=== PATIENT | male | born 1980 | race Caucasian/White ===

== ENCOUNTER → 2022-10-24 09:35 | Outpatient (CLI) | payer OTHER, SELFPAY ==
[2022-10-24 16:52] LABS: Basophils # 0.1 K/mm3 (0-0.2); Basophils % 1.3 % (0.1-2.0); Eosinophils # 0.1 K/mm3 (0.0-0.4); Eosinophils % 1.3 % (0.1-12.0); Hematocrit 47.4 % (42.0-52.0); Hemoglobin 15.6 g/dL (14.1-18.0); Lymphocytes # 1.9 K/mm3 (0.7-4.5); Lymphocytes % 26.5 % (10-50); Mean Corpuscular HGB Conc 32.9 g/dL (31.8-35.4); Mean Corpuscular Hemoglobin 29.4 pg (27.0-31.2); Mean Corpuscular Volume 89.3 fl (80-94); Mean Platelet Volume 9.4 fl (7.4-10.4); Monocytes # 0.4 K/mm3 (0.1-1.0); Neutrophils # 4.5 K/mm3 (1.8-7.8); Neutrophils % 64.9 % (37.0-80.0); Platelet Count 277 K/mm3 (142-424)
[2022-10-24 16:55] LABS: Alanine Aminotransferase 41 U/L (12-78); Albumin Level 4.5 g/dl (3.5-5.0); Albumin/Globulin Ratio 1.5 (1.1-1.8); Alkaline Phosphatase 73 U/L (38-126); Anion Gap 9.5 mEq/L (5-15); Aspartate Amino Transferase 38 U/L (17-59); Bilirubin,Total 0.4 mg/dl (0.2-1.3); Blood Urea Nitrogen 18 mg/dl (9-20); Calcium 9.4 mg/dl (8.4-10.2); Carbon Dioxide 30 mmol/L (22.0-30.0); Chloride 107 mmol/L (98-107); Chol/HDL Ratio 3.9 (1-3.5); Cholesterol 202 mg/dl (140-200); Estimated Glomerular Filt Rate 82 ml/min (>60); GFR (African American) 99 ML/MIN (>60); Glucose 98 mg/dl (74-100); HDL Cholesterol 52 mg/dl (40-60); Potassium 4.5 mmoL/L (3.5-5.1); Sodium 142 mmol/L (136-145); Total Protein,Serum 7.5 g/dl (6.3-8.2); Triglycerides 171 mg/dl (30-150); VLDL Cholesterol 34 mg/dL (0-40)
[2022-10-24 17:06] LABS: Direct LDL Cholesterol 104.47 mg/dL (100-129)
[2022-10-24 17:15] LABS: Hemoglobin A1C 5.7 % (4.0-6.0)
[2022-10-24 17:26] LABS: Thyroid Stimulating Hormone 2.19 uIU/mL (0.465-4.68)
== END ==
PROVIDERS: PCP Family Medicine; Visit Provider Family Medicine
DX: I10 Essential (primary) hypertension (principal); Z13.1 Encounter for screening for diabetes mellitus; Z13.220 Encounter for screening for lipoid disorders; Z13.29 Encounter for screening for other suspected endocrine disorder; Z79.899 Other long term (current) drug therapy
CPT/HCPCS: 80053; 80061; 83036; 84443; 85025

== ENCOUNTER 2025-04-23 07:55 | Outpatient (CLI) | payer SELFPAY ==
--- NOTE | 2025-04-23 09:00 | US_ITS ---
FINAL REPORT TECHNIQUE: Multiple transverse and longitudinal images limited to the pancreas CLINICAL HISTORY: family hx of pancreatic cx -- pt has been having pain adjacent to pancreas COMPARISON: None FINDINGS: LIMITED ULTRASOUND ATTENTION PANCREAS: The majority of the pancreas is obscured by overlying bowel gas. A small portion of the liver is visualized, and there is fatty infiltration of the liver. The gallbladder and bile ducts are not well-visualized. IMPRESSION: 1. Extremely limited exam as the majority the pancreas is obscured by overlying bowel gas. Would suggest CT of the abdomen and pelvis if further examination of the pancreas is clinically indicated. 2. Fatty infiltration of the liver is noted in the small portion of the liver visualized. Reviewed, Interpreted and Dictated by Colby Garcia MD Transcribed by Kylee Spann Authenticated and [facility]
== END 2025-04-23 23:59 | disposition home or self-care (01) ==
LOC: RAD 07:57
PROVIDERS: PCP Family Medicine; Visit Provider Family Medicine
DX: K76.0 Fatty (change of) liver, not elsewhere classified (principal); R10.12 Left upper quadrant pain; Z80.0 Family history of malignant neoplasm of digestive organs
CPT/HCPCS: 76705